=== PATIENT | male | born 1995 | race Caucasian/White ===

== ENCOUNTER 2017-02-16 18:12 | Emergency (ER) | payer SELFPAY ==
[2017-02-16 18:16] VITALS: BP 142/103; PULSE 97; RESP 20; TEMP 98.7
[2017-02-16] MEDS ORDERED: PENI500T PO (18:39)
--- NOTE | 2017-02-16 18:39 | PD ---
HPI Chief Complaint: ENT Complaint Time Seen by Provider: 18:35 Travel History International Travel<30 days: No Contact w/Intl Traveler<30days: No Traveled to known affect area: No History of Present Illness HPI 21 old male presents emergency department for evaluation of sore throat and fever 3 days. Patient reports history of frequent tonsillitis. He reports these symptoms are consistent with his previous episodes of tonsillitis. He reports pain with him throat, nonradiating, worse with swallowing, relieved with Tylenol, severity 6 out of 10. He denies difficulty eating or drinking. No change in voice. No foreign body sensation or lump in throat. [facility] Past Medical History Medical History: Denies Significant Hx Influenza Vaccination: No Past Surgical History Surgical History: No Previous Surgery Social History Alcohol Use: No Tobacco Use: No Substance Use: No Allergies-Medications (Allergen,Severity, Reaction): Coded Allergies: No Known Allergies (Unverified , 02/16/17) Review of Systems Except as stated in HPI: all other systems reviewed are Neg Physical Exam Narrative GENERAL: Well-nourished, well-developed patient. SKIN: Focused skin assessment warm/dry. HEAD: Normocephalic. EYES: No scleral icterus. No injection or drainage. THROAT: Pharyngeal erythema, tonsillar swelling and exudate. Uvula midline. No abscess. Normal phonation. NECK: Supple, trachea midline. No JVD or positive submandibular lymphadenopathy. CARDIOVASCULAR: Regular rate and rhythm without murmurs, gallops, or rubs. RESPIRATORY: Breath sounds equal bilaterally. No accessory muscle use. GASTROINTESTINAL: Abdomen soft, non-tender, nondistended. MUSCULOSKELETAL: No cyanosis, or edema. BACK: Nontender without obvious deformity. No CVA tenderness. Data Data Last Documented VS Vital Signs Date Time Temp Pulse Resp B/P Pulse Ox O2 Delivery O2 Flow Rate FiO2 02/16/17 18:16 98.7 97 20 142/103 MDM Medical Decision Making Medical Screen Exam Complete: Yes Emergency Medical Condition: Yes Differential Diagnosis Strep pharyngitis, viral pharyngitis, URI Narrative Course 21-year-old male presents emergency department for evaluation of sore throat 3 days with fever and chills. On exam patient is found to have exudative tonsillitis. He will be treated for strep pharyngitis. Diagnosis Primary Impression: Tonsillitis Referrals: Primary Care Physician Additional Instructions: Take the medication as prescribed. Take [id number] Tylenol and/or Motrin as needed for pain and fever. Stay well hydrated by drinking plenty of fluids. Follow up with her primary care doctor in 1-2 days. Scripts Penicillin V Potassium 500 Mg [id number] Mg PO Q12HR #20 TAB Prov:Deepa Xavier 02/16/17 Disposition: 01 DISCHARGE HOME Condition: Stable Deepa Xavier Feb 16, 2017 18:39
== END 2017-02-16 18:54 | disposition home or self-care (01) ==
LOC: PHEFT 18:12
DX: J03.90 Acute tonsillitis, unspecified (principal)
CPT/HCPCS: 99283